=== PATIENT | female | born 1990 | race African-American/Black ===

== ENCOUNTER 2021-01-27 10:43 | Emergency (ER) | payer MEDICAID ==
[~2021-01-27] VITALS: Ht 170.2 cm; Wt 61.0 kg
[2021-01-27 10:58] VITALS: BP 86/47
[2021-01-27] MEDS ORDERED: TETRACAINE 0.5% OPHTH DROPS 4ML RIGHTEYE ONE (11:15)
[2021-01-27] MEDS ORDERED: FLUORESCEIN SODIUM 1MG/STRIP RIGHTEYE ONE (11:15)
[2021-01-27] MEDS ORDERED: OFLO5DRO3 RIGHTEYE (12:25)
== END 2021-01-27 12:35 | disposition home or self-care (01) ==
LOC: ER 10:43
DX: H10.89 Other conjunctivitis (principal)
CPT/HCPCS: 99283

== ENCOUNTER 2021-02-01 15:19 | Emergency (ER) | payer MEDICAID ==
[~2021-02-01] VITALS: Ht 157.5 cm; Wt 61.0 kg
[~2021-02-01 15:19] MED LIST: OFLO5DRO3 RIGHTEYE
[2021-02-01] MEDS ORDERED: IBUP-2029 MT (16:11)
[2021-02-01] MEDS ORDERED: CEPH500T MT (16:11)
[2021-02-01] MEDS ORDERED: CEPHALEXIN 250MG CAPSULE PO ONE (16:15)
[2021-02-01] MEDS ORDERED: IBUPROFEN 600MG TABLET PO ONE (16:15)
[2021-02-01 16:39] VITALS: BP 123/75
== END 2021-02-01 16:50 | disposition home or self-care (01) ==
LOC: ER 15:19
DX: N75.0 Cyst of Bartholin's gland (principal); F12.10 Cannabis abuse, uncomplicated
CPT/HCPCS: 99283